=== PATIENT | male | born 1985 | race Two or more races ===

== ENCOUNTER 2025-07-29 12:19 | Emergency (ER) | payer OTHER ==
[~2025-07-29] VITALS: Ht 182.9 cm; Wt 65.8 kg
[2025-07-29 12:21] VITALS: BP 125/71; PULSE 104; RESP 18; TEMP 99.7; O2SAT 98
== END 2025-07-29 15:07 | disposition left against medical advice (07) ==
LOC: MERGE 12:19 → ER 12:19
DX: R20.0 Anesthesia of skin (principal); Z53.21 Procedure and treatment not carried out due to patient leaving prior to being seen by health care provider